=== PATIENT | female | born 1990 | race Caucasian/White ===

== ENCOUNTER 2023-03-13 23:58 | Emergency (ER) | payer MEDICAID ==
[~2023-03-13] VITALS: Ht 154.9 cm; Wt 80.0 kg
[2023-03-14] MEDS ORDERED: CLOT24CR TP (04:13)
[2023-03-14] MEDS ORDERED: CEPH500C2 MT (04:13)
[2023-03-14 04:15] VITALS: BP 110/73
== END 2023-03-14 05:15 | disposition home or self-care (01) ==
LOC: ER 23:58
DX: L03.115 Cellulitis of right lower limb (principal); B35.3 Tinea pedis; F17.200 Nicotine dependence, unspecified, uncomplicated
CPT/HCPCS: 73630; 99283

== ENCOUNTER 2024-02-24 15:56 | Emergency (ER) | payer SELFPAY ==
[~2024-02-24] VITALS: Ht 154.9 cm; Wt 72.7 kg
[~2024-02-24 15:56] MED LIST: CEPH500C2 MT; CLOT24CR TP
[2024-02-24 16:32] LABS: BASOPHILS % 0.9 % (0.0-2.0); CARBON DIOXIDE 25 mEq/L (21-32); CHLORIDE 110 mEq/L (98-107); EOSINOPHILS % 2.2 % (0.0-5.0); HEMATOCRIT. 38.2 % (36.0-48.0); HEMOGLOBIN. 13.2 g/dL (12.0-16.0); LYMPHOCYTES % 42.4 % (20.0-50.0); MEAN CORPUSCULAR HEMOGLOBIN 31.8 pg (28.0-32.0); MEAN CORPUSCULAR HGB CONC 34.5 g/dL (31.0-37.0); MEAN CORPUSCULAR VOLUME 92.3 fL (81.0-99.0); MEAN PLATELET VOLUME 8.6 fl (7.4-10.4); MONOCYTES % 5.6 % (2.0-8.0); NEUTROPHILS % 48.9 % (40.0-76.0); PLATELET 318 x1000/uL (130-400); POTASSIUM 3.8 mEq/L (3.5-5.1); RED BLOOD CELL COUNT 4.14 mill/uL (4.2-5.4); RED CELL DISTRIBUTION WIDTH 13.8 % (11.6-14.6); SODIUM 142 mEq/L (136-145); WHITE BLOOD COUNT 7.6 x1000/uL (4.5-11.0)
[2024-02-24 16:33] LABS: CALCIUM 8.6 mg/dL (8.7-10.4)
[2024-02-24 16:37] LABS: CREATININE 0.6 mg/dL (0.6-1.0); GLUCOSE 92 mg/dL (70-105)
[2024-02-24 16:38] LABS: UREA NITROGEN BLOOD 8 mg/dL (9-23)
[2024-02-24 16:39] LABS: ALANINE AMINOTRANSFERASE 12 IU/L (10-49); ALBUMIN 4.3 g/dL (3.2-4.8); ASPARTATE AMINOTRANSFERASE 17 IU/L (<34)
[2024-02-24 16:40] LABS: BILIRUBIN TOTAL 0.4 mg/dL (0.1-1.0); PROTEIN TOTAL 7.7 g/dL (6.0-8.3)
[2024-02-24 16:52] VITALS: O2SAT 100
[2024-02-24 18:27] LABS: HCG SCREEN NEGATIVE
[2024-02-24 20:26] LABS: CLARITY URINE CLOUDY (CLEAR); COLOR URINE YELLOW (YELLOW); GLUCOSE URINE NEGATIVE (NEGATIVE); KETONES URINE 1+ (NEGATIVE); LEUKOCYTE ESTERASE URINE 2+ (NEGATIVE); NITRITE URINE NEGATIVE (NEGATIVE); OCCULT BLOOD URINE 2+ (NEGATIVE); PH URINE >=9.0 (4.5-8.0); PROTEIN URINE 1+ (NEGATIVE); SPECIFIC GRAVITY URINE 1.021 (1.005-1.030); UROBILINOGEN URINE 0.2 E.U./dL (0.2-1.0)
[2024-02-24] MEDS ORDERED: KETOROLAC 60MG/2ML VIAL IM ONE (20:45)
[2024-02-24] MEDS ORDERED: ACETAMINOPHEN 500MG TABLET PO ONE (20:45)
[2024-02-24] MEDS ORDERED: METOCLOPRAMIDE HCL 10MG TABLET PO ONE (20:45)
[2024-02-24 20:49] LABS: BACTERIA URINE 3+; SQUAMOUS EPITHELIAL CELL URINE 2+ /lpf (RARE/1+)
[2024-02-24 21:35] VITALS: TEMP 98.2
[2024-02-24] MEDS: METOCLOPRAMIDE HCL 10MG TABLET PO NR (22:48)
[2024-02-24] MEDS: KETOROLAC 60MG/2ML VIAL IM NR (22:49)
[2024-02-24] MEDS: ACETAMINOPHEN 500MG TABLET PO NR (22:49)
[2024-02-24] MEDS ORDERED: ACET-2708 MT (23:26)
[2024-02-24 23:45] VITALS: BP 106/59; PULSE 80; RESP 18
== END 2024-02-24 23:43 | disposition home or self-care (01) ==
LOC: ER 15:56
DX: R51.9 Headache, unspecified (principal)
CPT/HCPCS: 99284; 80053; 81003; 81025; 84703; 83690; 85025; 36415; 93005; 96372; J8597; J1885